=== PATIENT | female | born 2000 | race Two or more races ===

== ENCOUNTER 2024-10-14 10:06 | Emergency (ER) | payer BC ==
[~2024-10-14] VITALS: Ht 152.4 cm; Wt 48.0 kg
[2024-10-14 10:09] VITALS: O2SAT 100
[2024-10-14] MEDS ORDERED: IMIT50 MT (11:06)
[2024-10-14 11:16] VITALS: BP 115/68; PULSE 77; RESP 16; TEMP 36.7; O2SAT 100
== END 2024-10-14 11:18 | disposition home or self-care (01) ==
LOC: ER 10:06
DX: H53.8 Other visual disturbances (principal); R51.9 Headache, unspecified; R00.0 Tachycardia, unspecified; Z90.89 Acquired absence of other organs
CPT/HCPCS: 82962; 93005; 99283